=== PATIENT | female | born 1980 | race Caucasian/White ===

== ENCOUNTER 2018-11-22 10:04 | Emergency (ER) | payer SELFPAY ==
[2018-11-22] MEDS: ALBUTEROL SULFATE 2.5 MG/3 ML AMPUL.NEB NEB ONE (11:04)
--- NOTE | 2018-11-22 11:09 | ED Physician Documentation ---
General Adult - HISTORIAN Historian: patient - HPI Stated Complaint: R leg pain Chief Complaint: General Adult Onset: hours Timing: still present Severity: moderate Further Comments: yes (Pt is a 38 yo chronic pain patient from [facility], who c/o pain in R leg and knee. Pain is chronic and pt has appointment Nov 28 with pain clinic, but pt also fell from standing today with exacerbation of pain. Pt states that she has also lost her pain medications. Pt has hx multiple episodes of DVT's and has Factor V Leiden deficiency and has a [employer] filter, which she says has not really worked. Pt does not have sob, beyond her usual respiratory state. Pt states that she uses albuterol.) - ROS CONST: no problems EYES/ENT: none CVS/RESP: none GI/: none MS/SKIN/LYMPH: leg pain (R) - PAST HX Past History: other (Factor V Leiden, DVT's, R knee surgery) Allergies/Adverse Reactions: Allergies Allergy/AdvReac Type Severity Reaction Status Date / Time aspirin Allergy Verified 11/22/18 10:35 carbamazepine [From Tegretol] Allergy Verified 11/22/18 10:35 chlorpromazine Allergy Verified 11/22/18 10:35 [From Thorazine] ciprofloxacin Allergy Verified 11/22/18 10:35 codeine Allergy Verified 11/22/18 10:35 cyclobenzaprine Allergy Verified 11/22/18 10:35 [From Flexeril] divalproex sodium Allergy Verified 11/22/18 10:35 [From Depakote] doxycycline Allergy Verified 11/22/18 10:35 hydroxyzine [From Vistaril] Allergy Verified 11/22/18 10:35 ibuprofen Allergy Verified 11/22/18 10:35 Influenza Virus Vaccines Allergy Verified 11/22/18 10:35 ketorolac [From Toradol] Allergy Verified 11/22/18 10:35 levetiracetam [From Keppra] Allergy Verified 11/22/18 10:35 metoclopramide [From Reglan] Allergy Verified 11/22/18 10:35 morphine Allergy Verified 11/22/18 10:35 mushroom Allergy Verified 11/22/18 10:35 nitrofurantoin Allergy Verified 11/22/18 10:35 [From Macrobid] ondansetron [From Zofran] Allergy Verified 11/22/18 10:35 Penicillins Allergy Verified 11/22/18 10:35 pneumococcal vaccine Allergy Verified 11/22/18 10:35 prednisone Allergy Verified 11/22/18 10:35 Sulfa (Sulfonamide Allergy Verified 11/22/18 10:35 Antibiotics) tramadol Allergy Verified 11/22/18 10:35 warfarin [From Coumadin] Allergy Verified 11/22/18 10:35 Home Medications: Ambulatory Orders Medication Instructions Recorded Amitriptyline HCl [Elavil] 150 mg PO HS 11/22/18 Clonazepam 2 mg PO BID 11/22/18 Gabapentin [Neurontin] 800 mg PO QID 11/22/18 Lamotrigine [Lamictal] 300 mg PO BID 11/22/18 Promethazine HCl [Phenergan] 25 mg PO Q6H PRN 11/22/18 - SOCIAL HX Smoking History: other (unk) - FAMILY HX Family History: No - REVIEWED ASSESSMENTS Nursing Assessment Reviewed: Yes Vitals Reviewed: Yes Progress - Progress Progress: Pt given Albuterol HFN in ER Pt refused blood draw for D-dimer eval and other labs. Pt signed out AMA. Pt not given pain med, which she requested. - EKG/XRAY/CT EKG: NSR (HR=90; RAD) ED Results Lab/Radiology - Orders Orders: ED Orders Category Date Time Status CBC/PLATELET/DIFF Routine Lab 11/22/18 Ordered CMP Routine Lab 11/22/18 Ordered PTINR [PT-INR] Routine Lab 11/22/18 Ordered PTT Routine Lab 11/22/18 Ordered Albuterol Sulfate [Ventolin Soln] Med 11/22/18 11:02 Once 2.5 mg NEB NOW ONE General Adult Physical Exam - PHYSICAL EXAM GENERAL APPEARANCE: mild distress EENT: pharynx normal NECK: normal inspection, supple RESPIRATORY: no resp distress, chest non-tender, breath sounds normal CVS: reg rate & rhythm, heart sounds normal BACK: normal inspection SKIN: warm/dry, normal color EXTREMITIES: other (tenderness R LE, pt uncooperative for exam) NEURO: motor nml, sensation nml Discharge Clincal Impression: leg pain Condition: Fair Disposition: 07 AGAINST MEDICAL ADVICE Decision to Admit: NO Decision Time: 12:01
[2018-11-22 13:28] VITALS: BP 115/65
== END 2018-11-22 11:14 | disposition left against medical advice (07) ==
LOC: ED 10:04
DX: M79.604 Pain in right leg (principal)
CPT/HCPCS: 94640; 99282; 99284